=== PATIENT | male | born 2000 ===

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

== ENCOUNTER → 2024-03-21 | Emergency (ER) | payer OTHER ==
[~2024-03-21] VITALS: Ht 185.4 cm; Wt 63.6 kg
[2024-03-21 16:12] VITALS: BP 112/77; PULSE 94; RESP 16; TEMP 98.7; O2SAT 100
[2024-03-21 16:21] LABS: COVID AG,FIA SOURCE NASAL SWAB
[2024-03-21 16:43] LABS: SARS-COV2 (COVID) ANTIGEN,FIA Negative (Negative)
[2024-03-21 16:49] LABS: INFLUENZA TYPE A POSITIVE FOR TYPE A (NEGATIVE); INFLUENZA TYPE B NEGATIVE FOR TYPE B (NEGATIVE)
== END | disposition left against medical advice (07) ==
LOC: EMS 16:02
DX: R53.83 Other fatigue (principal); R05.9 Cough, unspecified; R09.81 Nasal congestion; Z20.822 Contact with and (suspected) exposure to COVID-19; Z53.21 Procedure and treatment not carried out due to patient leaving prior to being seen by health care provider
CPT/HCPCS: 87804